=== PATIENT | female | born 1950 | race Two or more races ===

== ENCOUNTER 2017-03-29 05:56 | Emergency (ER) | payer MEDICARE, MEDICAID ==
[~2017-03-29] VITALS: Ht 160 cm; Wt 63.5 kg
[2017-03-29 06:07] VITALS: BP 155/78
== END 2017-03-29 08:21 | disposition home or self-care (01) ==
LOC: ER 05:59
DX: R05 Cough (principal); R50.9 Fever, unspecified; E11.9 Type 2 diabetes mellitus without complications; I10 Essential (primary) hypertension; E78.5 Hyperlipidemia, unspecified
CPT/HCPCS: 71046

== ENCOUNTER 2022-04-26 16:25 | Inpatient (IN) | payer MEDICARE, MEDICAID ==
[~2022-04-26] VITALS: Ht 144.8 cm; Wt 68.4 kg
[2022-04-26 17:29] LABS: Basophils # (auto) 0 10 ^3/uL (0-0.2); Basophils % (auto) 0.5 % (0.0-2.0); Eosinophils # (auto) 0 10 ^3/uL (0-0.8); Eosinophils % (auto) 0.8 % (0.0-7.0); Hematocrit 37.4 % (36.0-46.0); Hemoglobin 12.8 g/dL (12.2-16.2); Lymphocytes % (auto) 23.4 % (10.0-50.0); Mean Corpuscular Hgb Conc. 34.1 g/dL (32.0-36.0); Mean Corpuscular Volume 93.7 fL (80.0-100.0); Monocytes # (auto) 0.3 10 ^3/uL (0-1.3); Monocytes % (auto) 7.5 % (0.0-12.0); Neutrophils # (auto) 2.8 10 ^3/uL (1.6-8.6); Neutrophils % (auto) 67.8 % (37.0-80.0); Nucleated Red Blood Cells % 0.2 %; Red Cell Distribution Width 15.1 % (11.8-14.3); White Blood Cell 4.2 10^3/uL (4.4-10.8)
[2022-04-26 17:51] LABS: Albumin 3.8 g/dL (3.4-5.0); BUN/Creatinine Ratio 13.9; Magnesium 1.6 mg/dL (1.6-2.6); Potassium 4.3 mmol/L (3.5-5.1)
[2022-04-26 17:53] LABS: INR 0.93 (0.9-1.15); Partial Thromboplastin Time 25.4 sec (24.6-33.4)
[2022-04-26 17:57] LABS: Bilirubin, Total 0.4 mg/dL (0.2-1.0); Total Protein 8.4 g/dL (6.4-8.2)
[2022-04-27] MEDS ORDERED: DEXTROSE (50%) 50ML SYRG IV PRN (04:15)
[2022-04-27] MEDS ORDERED: ONDANSETRON HCL 4 MG/2 ML VIAL IV PRN (04:15)
[2022-04-27] MEDS ORDERED: ACETAMINOPHEN 325 MG TAB PO PRN (04:15)
[2022-04-27] MEDS ORDERED: cloNIDine HCL 0.1 MG TAB PO PRN (04:15)
[2022-04-27] MEDS: ACCU-CHEK COMFORT CURVE STRIP VI SCH ×4 (07:00→22:25)
[2022-04-27] MEDS: InsuLIN REG 1unit/0.01ml Soln (100units/ml) SC SCH ×4 (08:00→22:24)
[2022-04-27] MEDS: LEVOTHYROXINE SODIUM 25 MCG TAB PO SCH (08:27)
[2022-04-27] MEDS: HCTZ 25 MG TAB PO SCH (10:00)
[2022-04-27] MEDS: LISINOPRIL 20 MG TAB PO SCH (10:00)
[2022-04-27] MEDS: ENOXAPARIN SOD 30 MG/0.3 ML SYRINGE SC SCH (10:19)
[2022-04-27 12:57] VITALS: BP 112/86
[2022-04-27 22:00] VITALS: BP 151/75
[2022-04-27] MEDS ORDERED: ATORVASTATIN 20 MG TAB PO SCH (22:00)
[2022-04-28 00:41] VITALS: BP 151/75
[2022-04-28 05:00] VITALS: BP 108/67
[2022-04-28] MEDS: InsuLIN REG 1unit/0.01ml Soln (100units/ml) SC SCH ×4 (06:28→22:07)
[2022-04-28] MEDS: ACCU-CHEK COMFORT CURVE STRIP VI SCH ×4 (06:29→22:12)
[2022-04-28] MEDS: LEVOTHYROXINE SODIUM 25 MCG TAB PO SCH (06:29)
[2022-04-28 06:56] LABS: Basophils # (auto) 0 10 ^3/uL (0-0.2); Basophils % (auto) 0.6 % (0.0-2.0); Eosinophils # (auto) 0 10 ^3/uL (0-0.8); Eosinophils % (auto) 1.1 % (0.0-7.0); Hematocrit 35.1 % (36.0-46.0); Lymphocytes # (auto) 0.7 10 ^3/uL (0.4-5.4); Lymphocytes % (auto) 21.1 % (10.0-50.0); Mean Corpuscular Hemoglobin 32.1 pg (28.0-32.0); Mean Corpuscular Hgb Conc. 34.1 g/dL (32.0-36.0); Mean Corpuscular Volume 94.2 fL (80.0-100.0); Monocytes # (auto) 0.3 10 ^3/uL (0-1.3); Monocytes % (auto) 8.3 % (0.0-12.0); Neutrophils # (auto) 2.4 10 ^3/uL (1.6-8.6); Neutrophils % (auto) 68.9 % (37.0-80.0); Nucleated Red Blood Cells % 0.1 %; Red Blood Cells 3.73 10^6/uL (4.0-5.20); Red Cell Distribution Width 15.3 % (11.8-14.3); White Blood Cell 3.4 10^3/uL (4.4-10.8)
[2022-04-28 07:19] LABS: Albumin 3.4 g/dL (3.4-5.0); Calcium 9.2 mg/dL (8.5-10.1); Potassium 4.7 mmol/L (3.5-5.1)
[2022-04-28 07:25] LABS: BUN/Creatinine Ratio 18.2; Bilirubin, Total 0.4 mg/dL (0.2-1.0); Total Protein 7.6 g/dL (6.4-8.2)
[2022-04-28 08:05] LABS: Folate (Folic Acid) 14.59 ng/mL (5.38-24)
[2022-04-28 09:00] VITALS: BP 166/74
[2022-04-28] MEDS: ASPirin 81 mg TAB PO SCH (10:44)
[2022-04-28] MEDS: CLOPIDOGREL BISULFATE 75 MG TAB PO SCH (10:44)
[2022-04-28] MEDS: ENOXAPARIN SOD 30 MG/0.3 ML SYRINGE SC SCH (10:44)
[2022-04-28] MEDS: LISINOPRIL 20 MG TAB PO SCH (10:47)
[2022-04-28] MEDS: HCTZ 25 MG TAB PO SCH (10:48)
[2022-04-28 13:00] VITALS: BP 137/69
[2022-04-28 13:53] LABS: Hepatitis A Ab IgM Negative
[2022-04-28 14:03] LABS: Hepatitis B Core IgM Negative
[2022-04-28 14:07] LABS: Hepatitis B Surface Antibody Negative (Negative)
[2022-04-28 14:13] LABS: Hepatitis C Antibody Negative (Negative)
[2022-04-28 14:27] LABS: Hepatitis A Total Antibody Positive (Negative)
[2022-04-28] MEDS ORDERED: amLODIPine BESYLATE 5 MG TAB PO ONE (14:30)
[2022-04-28] MEDS ORDERED: ERGOCALCIFEROL 50,000 UNIT(1.25MG) CAP PO SCH (14:45)
[2022-04-28 17:00] VITALS: BP 130/73
[2022-04-28 19:40] LABS: Urine Bacteria NONE SEEN /hpf (None Seen); Urine Blood Negative /uL (Negative); Urine Specific Gravity 1.008 (1.001-1.035); Urine WBC 1 /hpf (0 - 5)
[2022-04-28 19:45] LABS: Protein, Urine 6.3 mg/dL (0.0-11.9)
[2022-04-28 22:00] VITALS: BP 103/54
[2022-04-28] MEDS ORDERED: amLODIPine BESYLATE 5 MG TAB PO SCH (22:00)
[2022-04-29 05:00] VITALS: BP 107/56
[2022-04-29] MEDS: InsuLIN REG 1unit/0.01ml Soln (100units/ml) SC SCH (06:11)
[2022-04-29] MEDS: ACCU-CHEK COMFORT CURVE STRIP VI SCH (06:12)
[2022-04-29] MEDS: LEVOTHYROXINE SODIUM 25 MCG TAB PO SCH (06:13)
[2022-04-29 06:45] LABS: BUN/Creatinine Ratio 24.5; Calcium 8.6 mg/dL (8.5-10.1); Potassium 4.6 mmol/L (3.5-5.1)
[2022-04-29 09:00] VITALS: BP_SYST 122; BP_SYST 126; BP_DIAS 60; BP_DIAS 92
[2022-04-29] MEDS: HCTZ 25 MG TAB PO SCH (10:24)
[2022-04-29] MEDS: CLOPIDOGREL BISULFATE 75 MG TAB PO SCH (10:24)
[2022-04-29] MEDS: ASPirin 81 mg TAB PO SCH (10:24)
[2022-04-29] MEDS: ENOXAPARIN SOD 30 MG/0.3 ML SYRINGE SC SCH (10:25)
[2022-04-29] MEDS ORDERED: HYDR25TA5 PO (11:43)
[2022-04-29] MEDS ORDERED: ERGO1CAP23 PO (11:43)
[2022-04-29] MEDS ORDERED: AML5T PO (11:43)
[2022-04-29] MEDS ORDERED: CLOP75TA70 PO (11:43)
[2022-04-29] MEDS ORDERED: ASPI-325 PO (11:43)
[2022-04-29] MEDS ORDERED: LEV25T PO (11:43)
[2022-04-29 11:56] VITALS: BP 112/60
== END 2022-04-29 12:55 | disposition home health service (06) | DRG 69 ==
LOC: ER 16:25 → OVERFLOW 04-27 04:18 → EAST 04-27 11:49 → WEST WING 04-27 20:58
PROVIDERS: ADMIT Nurse Practitioner; ATTEND Internal Medicine
DX: G45.9 Transient cerebral ischemic attack, unspecified (principal); N17.0 Acute kidney failure with tubular necrosis; I16.1 Hypertensive emergency; E78.5 Hyperlipidemia, unspecified; R74.01 Elevation of levels of liver transaminase levels; E66.9 Obesity, unspecified; R20.2 Paresthesia of skin; G47.30 Sleep apnea, unspecified; E11.22 Type 2 diabetes mellitus with diabetic chronic kidney disease; I12.9 Hypertensive chronic kidney disease with stage 1 through stage 4 chronic kidney disease, or unspecified chronic kidney disease; N18.32 Chronic kidney disease, stage 3b; Z68.32 Body mass index [BMI] 32.0-32.9, adult
CPT/HCPCS: 36415; 70450; 70551; 71045; 76705; 80048; 80053; 80061; 80074; 81001; 82306; 82570; 82607; 82746; 82962; 83036; 83735; 83880; 83935; 84156; 84300; 84439; 84443; 84484; 85025; 85610; 85730; 86704; 86706; 86708; 86803; 87340; 87426; 93005; 93306; 93886; 95819; 96372; G0378; J1815